=== PATIENT | female | born 1960 | race Caucasian/White ===

== ENCOUNTER 2020-07-26 14:56 | Outpatient (REF) | payer OTHER, SELFPAY ==
--- NOTE | 2020-07-27 08:21 | XR_ITS ---
EXAMINATION: XR KNEE BILATERAL STANDING XR KNEE RIGHT CLINICAL INFORMATION: Right knee pain COMPARISON: 04/02/2018 TECHNIQUE: AP standing view both knees Right knee, sunrise and lateral views FINDINGS: On the AP standing view, the knees are unchanged in appearance compared to 04/02/2018. At the left knee, there is mild medial compartment joint space narrowing. Small osteophytes are present at medial and lateral compartments of the left knee. At the right knee, there is chronic, mild narrowing of the medial tibiofemoral joint space with osteophyte formation. Prominent marginal osteophytes are present at the lateral tibiofemoral compartment. At the patellofemoral joint, there is moderate loss of the lateral joint space, mild lateral patellar subluxation, and marginal osteophyte formation. Small joint effusion is present. 0.4 cm osteochondral body projects over the anterior knee joint. There appear to be two ossific bodies measuring up to 0.6 cm in the posterior knee joint, as well. 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 * Moderate tricompartmental osteoarthritis of the right knee.
--- NOTE | 2020-07-27 08:21 | XR_ITS ---
EXAMINATION: XR KNEE BILATERAL STANDING XR KNEE RIGHT CLINICAL INFORMATION: Right knee pain COMPARISON: 04/02/2018 TECHNIQUE: AP standing view both knees Right knee, sunrise and lateral views FINDINGS: On the AP standing view, the knees are unchanged in appearance compared to 04/02/2018. At the left knee, there is mild medial compartment joint space narrowing. Small osteophytes are present at medial and lateral compartments of the left knee. At the right knee, there is chronic, mild narrowing of the medial tibiofemoral joint space with osteophyte formation. Prominent marginal osteophytes are present at the lateral tibiofemoral compartment. At the patellofemoral joint, there is moderate loss of the lateral joint space, mild lateral patellar subluxation, and marginal osteophyte formation. Small joint effusion is present. 0.4 cm osteochondral body projects over the anterior knee joint. There appear to be two ossific bodies measuring up to 0.6 cm in the posterior knee joint, as well. 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 * Moderate tricompartmental osteoarthritis of the right knee.
== END 2020-07-26 14:57 | disposition home or self-care (01) ==
LOC: HO.HOSX 14:56
PROVIDERS: Visit Provider Orthopaedic Surgery
DX: M25.562 Pain in left knee (principal); M25.561 Pain in right knee
CPT/HCPCS: 73560; 73565

== ENCOUNTER → 2020-07-27 08:20 | Outpatient (BNVA) | payer OTHER, SELFPAY | PROVIDERS: PCP Internal Medicine; Visit Provider Orthopaedic Surgery | DX: M22.2X1 Patellofemoral disorders, right knee (principal) | CPT/HCPCS: 20610; 99212; J1040 ==

== ENCOUNTER 2020-09-21 08:47 | Outpatient (REF) | payer OTHER, SELFPAY ==
[2020-09-21 14:00] LABS: CT PCR NOT DETECTED (Not Detect.); NG PCR NOT DETECTED (Not Detect.)
[2020-09-22 09:06] LABS: BV Int Neg Control Negative (Negative); BV Int Pos Control Positive (Positive)
[2020-09-24 03:21] LABS: HPV mRNA E6/E7 rflx Not Detected (Not Detected)
== END 2020-09-21 08:48 | disposition home or self-care (01) ==
LOC: HO.LAB 08:47
PROVIDERS: PCP Internal Medicine; Visit Provider Advanced Practice Midwife
DX: Z01.411 Encounter for gynecological examination (general) (routine) with abnormal findings (principal); R10.2 Pelvic and perineal pain; K62.9 Disease of anus and rectum, unspecified
CPT/HCPCS: 36415; 87480; 87491; 87510; 87591; 87624; 87660; 88142

== ENCOUNTER 2020-09-28 11:15 | Outpatient (REF) | payer OTHER, SELFPAY ==
--- NOTE | ~2020-09-28 | US_ITS ---
EXAMINATION:US pelvic complete, US transvaginal CLINICAL INFORMATION: Reason for Exam R10.2 - Pelvic and perineal pain COMPARISON: No priors available. LMP: Postmenopausal FINDINGS: UTERUS: The uterus is anteverted. Size: 6.7 x 1.9 x 4.4 cm. Uterine mass: There is no uterine mass. Cervix: Grossly unremarkable. Endometrium: No ultrasound evidence of endometrial lesion. endometrial thickness measures 0.3 cm ADNEXA: Normal Right ovary: Normal in size. Left ovary: Normal in size. Doppler exam: Normal Doppler flow identified in both ovaries. FREE FLUID: Trace amount of free fluid. OTHER FINDINGS: Urinary bladder postvoid volume is prominent. Patient is symptomatic consider correlation with follow-up renal bladder ultrasound. US/US transvaginal IMPRESSION: Uterus and ovaries unremarkable. Endometrium is normal thickness 0.3 cm. Incidental finding was made of high post void urine volume. Clinical correlation recommended, this could be further evaluated with follow-up dedicated renal/bladder ultrasound.
--- NOTE | ~2020-09-28 | US_ITS ---
EXAMINATION:US pelvic complete, US transvaginal CLINICAL INFORMATION: Reason for Exam R10.2 - Pelvic and perineal pain COMPARISON: No priors available. LMP: Postmenopausal FINDINGS: UTERUS: The uterus is anteverted. Size: 6.7 x 1.9 x 4.4 cm. Uterine mass: There is no uterine mass. Cervix: Grossly unremarkable. Endometrium: No ultrasound evidence of endometrial lesion. endometrial thickness measures 0.3 cm ADNEXA: Normal Right ovary: Normal in size. Left ovary: Normal in size. Doppler exam: Normal Doppler flow identified in both ovaries. FREE FLUID: Trace amount of free fluid. OTHER FINDINGS: Urinary bladder postvoid volume is prominent. Patient is symptomatic consider correlation with follow-up renal bladder ultrasound. US/US pelvic complete IMPRESSION: Uterus and ovaries unremarkable. Endometrium is normal thickness 0.3 cm. Incidental finding was made of high post void urine volume. Clinical correlation recommended, this could be further evaluated with follow-up dedicated renal/bladder ultrasound.
== END 2020-09-28 11:16 | disposition home or self-care (01) ==
LOC: HO.US 11:15
PROVIDERS: PCP Internal Medicine; Visit Provider Advanced Practice Midwife
DX: R10.2 Pelvic and perineal pain (principal)
CPT/HCPCS: 76830; 76856

== ENCOUNTER → 2020-10-12 11:17 | Outpatient (BNVA) | payer OTHER, SELFPAY | PROVIDERS: PCP Internal Medicine; Visit Provider Advanced Practice Midwife | DX: R10.2 Pelvic and perineal pain (principal); R82.90 Unspecified abnormal findings in urine; Z71.2 Person consulting for explanation of examination or test findings | CPT/HCPCS: Q3014 ==

== ENCOUNTER 2020-11-09 07:58 | Outpatient (REF) | payer OTHER, SELFPAY ==
[2020-11-09 08:55] LABS: Glucose Urine UA NEG (NEG); Leukocyte Esterase Urine NEG (NEG); Nitrite Urine NEG (NEG); PH 5.5 (5.0-8.0); Specific Gravity - Urine >= 1.030 (1.005-1.025); Urine Blood NEG (NEG); Urine Ketones NEG (NEG); Urine Protein NEG (NEG-TRACE)
[2020-11-09 08:56] LABS: Appearance Urine CLEAR; Color Urine YELLOW
== END 2020-11-09 07:59 | disposition home or self-care (01) ==
LOC: HO.LAB 07:58
PROVIDERS: PCP Internal Medicine; Visit Provider Advanced Practice Midwife
DX: R82.998 Other abnormal findings in urine (principal)
CPT/HCPCS: 81003

== ENCOUNTER 2020-11-16 07:36 | Outpatient (REF) | payer OTHER, SELFPAY ==
[2020-11-16 10:51] LABS: Hemoglobin 12.5 g/dl (12.0-16.0); Mean Corpuscular HGB Conc 32.1 g/dl (31.0-35.0); Mean Corpuscular Hemoglobin 30.1 pg (27.0-33.0); Mean Platelet Volume 11.2 fL (9.4-12.3); Platelet Count 281 X10*3/uL (160-400); Red Blood Count 4.15 X10*6/uL (4.20-5.50); Red Cell Distribution Width 12.8 % (11.0-16.0); White Blood Count 5.4 X10*3/uL (4.8-10.8)
[2020-11-16 11:23] LABS: Alanine Aminotransferase 24 U/L (0-31); Alkaline Phosphatase 62 U/L (39-117); Anion Gap 10 (12-20); Aspartate Amino Transferase 18 U/L (5-31); Bilirubin Total 0.4 mg/dL (0.0-1.0); Blood Urea Nitrogen 14 mg/dL (9-16); C Reactive Protein 0.13 mg/dL (< or = 0.50); Calcium 8.8 mg/dL (8.4-10.2); Carbon Dioxide 28 mmol/L (22-29); Chloride 105 mmol/L (96-108); Cholesterol 259 mg/dL; Estimated Glomerular Filt Rate > 60; Glucose Fasting 105 mg/dL (60-99); HDL Cholesterol 59 mg/dL; LDL Cholesterol Calculated 172 mg/dl; Potassium 4.4 mmol/L (3.3-5.1); Rheumatoid Factor < 15.0 IU/mL (<15.0); Sodium 139 mmol/L (135-145); Total Protein 7.1 g/dL (6.5-8.0); Triglycerides 141 mg/dL
[2020-11-16 11:44] LABS: Estimated Average Glucose 126 mg/dL
[2020-11-16 11:46] LABS: TSH reflex Free T4 1.72 uIU/mL (0.32-4.0)
[2020-11-16 12:31] LABS: Folate 15.4 ng/mL (> or = 4.0); Vitamin B12 216 pg/mL (200-900)
[2020-11-17 13:32] LABS: Anti Nuclear Antibody Screen NEGATIVE (NEGATIVE)
== END 2020-11-16 07:37 | disposition home or self-care (01) ==
LOC: HO.WFDLDS 07:36
PROVIDERS: Visit Provider Internal Medicine
DX: Z00.00 Encounter for general adult medical examination without abnormal findings (principal); M79.10 Myalgia, unspecified site; R53.83 Other fatigue
CPT/HCPCS: 36415; 80053; 80061; 82306; 82607; 82746; 83036; 84443; 85027; 86038; 86039; 86140; 86431

== ENCOUNTER 2020-11-24 14:00 | Outpatient (REF) | payer OTHER, SELFPAY ==
--- NOTE | ~2020-11-24 | MM_ITS ---
EXAMINATION: MM SCREENING DIGITAL BREAST TOMOSYNTHESIS, BILATERAL CLINICAL INFORMATION: Screening. Asymptomatic. The lifetime risk of breast cancer based on the Tyrer-Cuzick Model is 5.3%. COMPARISON: Mammography: June 05, 2018 TECHNIQUE: Digital breast tomosynthesis is performed in both the craniocaudal and mediolateral oblique views along with computer-aided detection (CAD). Synthesized 2D images are generated from the tomosynthesis. FINDINGS: There are scattered areas of fibroglandular density (ACR BI-RADS breast composition Category b). There are no significant masses, abnormal calcifications, or other abnormalities. MM/MM tomosynthesis screening BI IMPRESSION: There are no significant changes from prior study. ASSESSMENT: BI-RADS 1: Negative RECOMMENDATION: Routine annual mammography screening. This patient's information was entered into a reminder system with a target due date for their next mammogram.
== END 2020-11-24 14:01 | disposition home or self-care (01) ==
LOC: HO.MAMMO 14:00
PROVIDERS: PCP Internal Medicine; Visit Provider Advanced Practice Midwife
DX: Z12.31 Encounter for screening mammogram for malignant neoplasm of breast (principal)
CPT/HCPCS: 77063; 77067